=== PATIENT | female | born 1960 | race Caucasian/White ===

== ENCOUNTER 2025-02-05 22:28 | Inpatient (IN) | payer OTHER ==
[~2025-02-05] VITALS: Ht 157.5 cm; Wt 49.9 kg
[2025-02-05 22:31] VITALS: O2SAT 98
[2025-02-05] MEDS ORDERED: NOREPINEPHRINE 8 MG in DEXT 5% WATER 242 ML IV PRN (22:45)
[2025-02-05] MEDS: SODIUM CHLORIDE 0.9% 500 ML IV ONE (22:58)
[2025-02-05] MEDS ORDERED: VERAPAMIL HCL 2.5 MG/1 ML 2ML VIAL IV ONE (23:08)
[2025-02-05] MEDS ORDERED: DIPHENHYDRAMINE 50MG/ML VIAL ONE (23:08)
[2025-02-05] MEDS ORDERED: EPINEPHRINE 0.1MG/ML (1:10,000) 10ML SYR ONE (23:08)
[2025-02-05] MEDS ORDERED: FENTANYL CITRATE/PF 50MCG/ML 2ML VIAL ONE (23:08)
[2025-02-05] MEDS ORDERED: IODIXANOL 320 MG/ML 150ML BOTTLE IV ONE (23:08)
[2025-02-05] MEDS ORDERED: HEPARIN 1000 UNITS/ML 10ML ONE (23:09)
[2025-02-05] MEDS ORDERED: MIDAZOLAM HCL 2 MG/2 ML VIAL ONE (23:09)
[2025-02-05] MEDS ORDERED: LIDOCAINE HCL 1% 10 MG/ML 10ML VIAL ONE (23:09)
[2025-02-05] MEDS ORDERED: ATROPINE SULFATE 1MG/10ML SYR ONE (23:09)
[2025-02-05] MEDS: NOREPINEPHRINE 8MG/250ML PMX 250 ML IV PRN (23:28)
[2025-02-05] MEDS: ONDANSETRON HCL 4MG/2ML INJ IV ONE (23:29)
[2025-02-05] MEDS: ACETAMINOPHEN 1000MG/100ML 100 ML IV ONE (23:30)
[2025-02-05] MEDS: FENTANYL CITRATE/PF 50MCG/ML 2ML VIAL IV ONE (23:34)
[2025-02-05 23:37] LABS: HEMATOCRIT. 34.2 % (36.0-48.0); HEMOGLOBIN. 11.4 g/dL (12.0-16.0); MEAN CORPUSCULAR HEMOGLOBIN 33.1 pg (28.0-32.0); MEAN CORPUSCULAR HGB CONC 33.3 g/dL (31.0-37.0); MEAN CORPUSCULAR VOLUME 99.5 fL (81.0-99.0); MEAN PLATELET VOLUME 8.4 fl (7.4-10.4); PLATELET 239 x1000/uL (130-400); RED BLOOD CELL COUNT 3.43 mill/uL (4.2-5.4); RED CELL DISTRIBUTION WIDTH 14.3 % (11.6-14.6); WHITE BLOOD COUNT 9.2 x1000/uL (4.5-11.0)
[2025-02-05 23:42] LABS: CHLORIDE 103 mEq/L (98-107); SODIUM 137 mEq/L (136-145)
[2025-02-05 23:44] LABS: CALCIUM 8.6 mg/dL (8.7-10.4); CARBON DIOXIDE 20 mEq/L (21-32)
[2025-02-05 23:45] LABS: DIFFERENTIAL COMMENT 1
[2025-02-05 23:48] LABS: CREATININE 1.4 mg/dL (0.6-1.0)
[2025-02-05 23:49] LABS: ETHANOL BLOOD < 10 mg/dL (<10); INR 0.9; PARTIAL THROMBOPLASTIN TIME < 21.0 sec (23.4-31.0); PROTHROMBIN TIME 10.2 sec (9.6-11.0); UREA NITROGEN BLOOD 17 mg/dL (9-23)
[2025-02-05 23:51] LABS: TROPONIN I HIGH SENSITIVITY 14 ng/L (3.0-34)
[2025-02-06] VITALS (48 sets, daily range): BP systolic 56–122; BP diastolic 33–95; PULSE 0–136; RESP 0–35; TEMP 36.6–36.8; O2SAT 0–97
[2025-02-06 00:10] LABS: GLUCOSE 449 mg/dL (70-105)
[2025-02-06] MEDS: SODIUM CHLORIDE 0.9% 1,000 ML IV ONE (00:44)
[2025-02-06 00:58] LABS: PHOSPHORUS 4.1 mg/dL (2.5-4.9)
[2025-02-06] MEDS: NA PHOS,M-B/NA PHOS,DI-BA ENEMA 118ML PR ONE (01:45)
[2025-02-06] MEDS ORDERED: KCL 20MEQ/100ML PREMIX 100 ML IV PRN ×2 (01:45→08:30)
[2025-02-06] MEDS ORDERED: DEXTROSE 50% WATER 50ML SYRINGE IV PRN ×2 (01:45→08:30)
[2025-02-06] MEDS ORDERED: BLOOD SUGAR DIAGNOSTIC STRIP TEST PRN (01:45)
[2025-02-06] MEDS: BLOOD SUGAR DIAGNOSTIC STRIP TEST SCH (01:45)
[2025-02-06] MEDS ORDERED: POTASSIUM CHLORIDE 40 MEQ in SODIUM CHLORIDE 0.9% 230 ML IV PRN (01:45)
[2025-02-06] MEDS: INSULIN REGULAR (HUMULIN R) 1000UNITS/10ML VIAL IV NR (03:10)
[2025-02-06] MEDS: INSULIN REGULAR 100U/100ML PMX 100 ML IV SCH (03:17)
[2025-02-06] MEDS: SODIUM CHLORIDE 0.9% 1,000 ML IV SCH ×2 (03:21→08:30)
[2025-02-06 03:23] LABS: POTASSIUM 4.2 mEq/L (3.5-5.1)
[2025-02-06 03:24] LABS: CALCIUM 8.8 mg/dL (8.7-10.4)
[2025-02-06 03:29] LABS: CREATININE 1.5 mg/dL (0.6-1.0)
[2025-02-06] MEDS: HYDROMORPHONE HCL/PF 1MG/ML INJ IV NR (05:29)
[2025-02-06] MEDS: ONDANSETRON HCL 4MG/2ML INJ IV PRN (05:56)
[2025-02-06 08:04] LABS: PLATELET ESTIMATE NORMAL
[2025-02-06] MEDS ORDERED: ACETAMINOPHEN 325MG TABLET PO PRN ×2 (08:15)
[2025-02-06] MEDS ORDERED: ONDANSETRON HCL 4MG/2ML INJ IV PRN (08:15)
[2025-02-06] MEDS ORDERED: DOCUSATE SODIUM 100MG CAPSULE PO PRN (08:15)
[2025-02-06] MEDS ORDERED: IPRATROPIUM/ALBUTEROL 0.5-3(2.5)MG/3ML NEB HHN PRN (08:15)
[2025-02-06] MEDS ORDERED: MAGNESIUM 2 G PREMIX 50 ML IV PRN (08:30)
[2025-02-06] MEDS ORDERED: INSULIN REGULAR 100U/100ML PMX 100 ML IV PRN (08:30)
[2025-02-06] MEDS ORDERED: DEXT 5%/0.9% NACL 1,000 ML IV SCH (08:30)
[2025-02-06] MEDS ORDERED: SODIUM PHOSPHATE 15 MMOL in SODIUM CHLORIDE 0.9% 245 ML IV PRN (08:30)
[2025-02-06] MEDS ORDERED: BISACODYL 5MG TABLET PO SCH (09:00)
[2025-02-06 09:25] LABS: BG BASE EXCESS -23.2 mmol/L (-2.0-3.0); BG CARBOXYHEMOGLOBIN 0.2 % (0.5-1.5); BG DEOXYHEMOGLOBIN 3.8 % (0.0-5.0); BG FRACTION INSPIRED OXYGEN 40; BG HCO3 ACT 9.3 mmol/L (21.0-28.0); BG METHEMOGLOBIN 0.2 % (0.5-1.5); BG OXYGEN SATURATION 96.2 % (94.0-98.0); BG OXYHEMOGLOBIN 95.8 % (94.0-98.0); BG PCO2 48.4 mmHg (32.0-45.0); BG PH 6.902 (7.350-7.450); BG PO2 115.6 mmHg (83.0-108.0); BG SAMPLE SITE LEFT RADIAL; BG VENT MODE NASAL CANNULA
[2025-02-06] MEDS ORDERED: LIDOCAINE HCL 1% 10 MG/ML 10ML VIAL ONE (10:07)
[2025-02-06] MEDS: SODIUM BICARBONATE 8.4% 50MEQ/50ML SYR IV SCH ×2 (10:54)
[2025-02-06] MEDS: PANTOPRAZOLE SODIUM 40 MG/VIAL IV SCH (10:55)
[2025-02-06] MEDS: ASPIRIN 81MG TABLET PO SCH (10:55)
[2025-02-06] MEDS ORDERED: SODIUM BICARBONATE 100 MEQ in SODIUM CHLORIDE 0.45% 900 ML IV SCH (11:00)
[2025-02-06] MEDS ORDERED: PHENYLEPHRINE 50 MG in DEXT 5% WATER 245 ML IV PRN (11:15)
[2025-02-06] MEDS ORDERED: PHENYLEPHRINE 50MG/250ML PMX 250 ML IV PRN (11:15)
[2025-02-06] MEDS ORDERED: DOPAMINE 800MG PREMIX (DOUBLE) 250 ML IV PRN (11:40)
[2025-02-06] MEDS ORDERED: DOPAMINE 400MG/250ML PREMIX 250 ML IV PRN (11:40)
[2025-02-06] MEDS ORDERED: DOPAMINE 400MG/250ML PREMIX 250 ML IV ONE (11:40)
== END 2025-02-06 11:48 | DRG 637 ==
LOC: ER 22:28 → MICUSO 02-06 01:35 → EDBEDREQ 02-06 01:42 → EDBEDREQTM 02-06 01:42 → ENRESERV 02-06 03:59
PROVIDERS: ADMIT Internal Medicine; ATTEND Internal Medicine
PROC: 02HV33Z Insertion of Infusion Device into Superior Vena Cava, Percutaneous Approach (ICD-10-PCS; principal; 2025-02-06)
PROC: B548ZZA Ultrasonography of Superior Vena Cava, Guidance (ICD-10-PCS; 2025-02-06)
PROC: 5A12012 Performance of Cardiac Output, Single, Manual (ICD-10-PCS; 2025-02-06)
PROC: 0BH17EZ Insertion of Endotracheal Airway into Trachea, Via Natural or Artificial Opening (ICD-10-PCS; 2025-02-06)
DX: E11.10 Type 2 diabetes mellitus with ketoacidosis without coma (principal); G92.8 Other toxic encephalopathy; J96.01 Acute respiratory failure with hypoxia; N17.9 Acute kidney failure, unspecified; R57.9 Shock, unspecified; I10 Essential (primary) hypertension; E11.43 Type 2 diabetes mellitus with diabetic autonomic (poly)neuropathy; E86.1 Hypovolemia; K31.84 Gastroparesis; I25.9 Chronic ischemic heart disease, unspecified
CPT/HCPCS: 31500; 31720; 36415; 36573; 36600; 71045; 74176; 80048; 80320; 82375; 82805; 82962; 83735; 83880; 83930; 84100; 84484; 85025; 86850; 86900; 92950; 93005; 99291; C1725; J0461; J1171; J1200; J1265; J1644; J1815; J2003; J2250; J2405; J2470; J3010; J3490; J7030; J7040; J7042; Q9967; G0480; J0131